=== PATIENT | male | born 1980 | race Caucasian/White ===

== ENCOUNTER 2016-07-17 23:31 | Emergency (ER) | payer OTHER ==
[~2016-07-17] VITALS: Ht 175.3 cm; Wt 127.0 kg
--- NOTE | 2016-07-18 00:28 | ED UPPER/LOWER EXTREMITY COMPL ---
History of Present Illness General Chief Complaint: Shoulder Injury Stated Complaint: RIGHT SHOULDER PAIN Source: patient Exam Limitations: no limitations Vital Signs & Intake/Output Vital Signs & Intake/Output Vital Signs Date Time Temp Pulse Resp B/P B/P Pulse O2 O2 Flow FiO2 Mean Ox Delivery Rate 07/18 0209 98.9 84 20 136/84 96 Room Air 07/18 0017 98.9 80 18 137/86 95 Room Air Allergies Coded Allergies: NO KNOWN ALLERGIES (07/18/16) Reconcile Medications Ibuprofen 800 MG TABLET 1 TAB PO TID PRN pain Oxycodone HCl/Acetaminophen (Percocet 5-325 MG Tablet) 5 MG-325 MG TABLET 1 TAB PO 4XDP PRN PAIN TEN...[id number] Triage Note: TRIAGE: PATIENT REPORTS "FELT TWEAK FRIDAY WHEN WORKING OUT AND TODAY I CAN'T MOVE IT." PAIN TO R SHOULDER 12/01. REPORTS +NUMBNESS TO R SHOULDER, DENIES TINGLING. Triage Nurses Notes Reviewed? yes Onset: Gradual Duration: day(s):, waxing and waning Timing: recent history Severity: moderate Pain/Injury Location: Right: Shoulder. HPI: 35 yo gentleman presents with right shoulder pain x 2 days. "I was lifting weights and felt pain after my set.... It felt like a pinched nerve, but then the pain got worse over the course of the day.... and now it's really painful for me to raise my arm." "Tonight I took 1600mg of ibuprofen and it still hurts." He notes no numbness, tingling, or muscle wasting. He is otherwise well. Past History Travel History Traveled to [place] past 21 day No Medical History Any Pertinent Medical History? see below for history Neurological: NONE EENT: NONE Cardiovascular: NONE Respiratory: NONE Gastrointestinal: NONE Hepatic: NONE Renal: NONE Musculoskeletal: NONE Psychiatric: NONE Endocrine: NONE Blood Disorders: NONE Cancer(s): NONE [employer] INS[employer]OR/Reproductive: NONE Surgical History Surgical History: none Psychosocial History What is your primary language Upper Sorbian Tobacco Use: Never used Family History Hx Contributory? No Review of Systems Review of Systems Constitutional: Reports: no symptoms. EENTM: Reports: no symptoms. Respiratory: Reports: no symptoms. Cardiovascular: Reports: no symptoms. Gastrointestinal/Abdominal: Reports: no symptoms. Genitourinary: Reports: no symptoms. Musculoskeletal: Reports: no symptoms. Skin: Reports: no symptoms. Neurological/Psychological: Reports: no symptoms. Hematologic/Endocrine: Reports: no symptoms. Immunological: Reports: no symptoms. All Other Systems: Reviewed and Negative Physical Exam Physical Exam General Appearance: well developed/nourished, mild distress Head: atraumatic Eyes: Bilateral: PERRL, EOMI. Ears, Nose, Throat: normal pharynx, normal ENT inspection, hearing grossly normal Neck: normal inspection, supple Cardiovascular/Respiratory: regular rate/rhythm Back: normal inspection Shoulder Right: muscle spasm and diffuse tenderness around right trapezius and deltoid regions, pain elicited with passive ROM. no obvious deformity. Skin: intact, normal color, warm/dry Lymphatic: no anterior cervical brian Progress Differential Diagnosis: contusion, dislocation, fracture, sprain, tendon injury Plan of Care: xray negative... discussed at length... pt placed in right shoulder sling by RN... pt referred to ortho, send rx for percocet and ibuprofen. Diagnostic Imaging: Viewed by Me: Radiology Read. Discussed w/RAD: Radiology Read. Radiology Impression: right shoulder... no fx, no acute disease Departure Departure Disposition: HOME OR SELF CARE Condition: Stable Clinical Impression Primary Impression: Sprain of right shoulder Referrals: UNKNOWN (PCP/Family) Departure Forms: Customer Survey General Discharge Information Prescriptions: Current Visit Scripts Oxycodone HCl/Acetaminophen (Percocet 5-325 MG Tablet) 1 TAB PO 4XDP PRN PAIN #10 TAB TEN...[id number] Ibuprofen 1 TAB PO TID PRN pain #60 TAB
--- NOTE | 2016-07-18 01:53 | RADIOLOGY REPORT ---
EXAMINATION: XR SHOULDER, RIGHT CLINICAL INFORMATION: Right shoulder pain COMPARISON: None TECHNIQUE: AP external rotation, Grashey, scapular Y, and axillary views of the right shoulder. FINDINGS: No acute fracture or dislocation. The humeral head articulates appropriately with the glenoid. The glenohumeral joint space is maintained. The acromioclavicular joint is intact. The visualized lung is clear. IMPRESSION: Normal right shoulder.
[2016-07-18] MEDS ORDERED: PERCOCET 5-3251 EACH PO (01:58)
[2016-07-18] MEDS ORDERED: IBUPROFEN800 M1 PO (01:58)
[2016-07-18 02:09] VITALS: BP 136/84
== END 2016-07-18 02:15 ==
LOC: ERH 23:31
DX: S43.401A Unspecified sprain of right shoulder joint, initial encounter (principal); X50.0XXA Overexertion from strenuous movement or load, initial encounter; Y92.9 Unspecified place or not applicable; Y93.B3 Activity, free weights
CPT/HCPCS: 73030-RT